=== PATIENT | female | born 1970 | race Caucasian/White ===

== ENCOUNTER 2016-10-16 12:44 | Day surgery (SDC) | payer OTHER ==
[2016-10-16 13:38] VITALS: BP 116/80; Ht 170.2 cm
[2016-10-16 13:38] LABS: HEMATOCRIT 42.3 % (36.0-48.0); HEMOGLOBIN 14.4 g/dL (12-16); MCH 30.1 pg (26.0-34.0); MCV 88.3 fL (80.0-100.0); MEAN PLATELET VOLUME 10.8 fL (7.4-10.4); RBC 4.79 10x6/uL (4.00-5.40); RDW 12.8 % (11.5-14.5); WBC 5.4 10x3/uL (4.8-10.8)
--- NOTE | 2016-10-16 15:00 | NUR ---
1450 DR RUIZ INTO RM TO SPEAK W/PT AND 1455 FULL LIQUID TRAY PROVIDED PT ASKED WHEN SHE WAS GOING TO GET TO LEAVE EXPLAINED AFTER VERITO TRAY AND ONE MORE SET OF VS IN 30MIN. PT VU
--- NOTE | 2016-10-16 15:11 | NUR ---
VERITO TRAY WELL STATES SHE FEELS FINE NO N/V.
--- NOTE | 2016-10-16 15:31 | NUR ---
1525 DC TEACHING COMPLETE PT VU PRESCRIPTION GIVEN
--- NOTE | 2016-10-18 12:19 | OP ---
PATIENT NAME: JOHN TURCIOS MEDICAL RECORD: [id number] :66 LOCATION:D.[facility] ADMISSION DATE: SURGEON: HERNAN RUIZ DO DATE OF OPERATION: 10/16/2016 PROCEDURE: Colonoscopy with biopsy and cold forceps polypectomy. INDICATION FOR PROCEDURE: Altered bowel function, diarrhea, and abdominal pain. SCOPE: Olympus video pediatric colonoscope. MEDICATIONS: Propofol 450 mg IV per anesthesia. WITHDRAWAL TIME: 10 minutes. ESTIMATED BLOOD LOSS: Minimal. COMPLICATIONS: None. FINDINGS: Informed consent was given. The patient was made comfortable with the above medication. After reaching an adequate level of sedation by slow IV push, the patient was placed on her left side. A digital rectal examination was performed and was normal. The endoscope was then advanced under direct visualization through the rectum to the terminal ileum. The scope was slowly withdrawn and mucosa was carefully examined. The prep was good. There was a single polyp identified on this examination in the transverse colon. It was benign appearing and sessile. It measured approximately 5 mm in diameter. It was removed with cold forceps completely and completely retrieved. There were a few small mouth diverticula in the descending and sigmoid colon. There were also internal hemorrhoids visualized on retroflexion in the rectum. These were small and nonbleeding. Other interventions include some random colon biopsies to rule out microscopic colitis. The endoscope was removed after complete evaluation and withdrawn from the patient. The patient tolerated the procedure well and there were no complications. IMPRESSION: 1. Single transverse colon polyp as described above, removed with cold forceps. 2. Internal hemorrhoids, which were small and nonbleeding. 3. Mild diverticulosis of the left side of the colon. PLAN AND RECOMMENDATIONS: 1. Discharge home when recovery parameters are met. 2. High fiber diet. 4. Continue current medications. 5. Trial of dicyclomine 20 mg b.i.d. p.r.n. abdominal pain or spasms. 6. Proceed with upper endoscopy as scheduled. 7. Follow up in GI clinic as needed. TRANSINT:[id number] Voice Confirmation ID: [id number] DOCUMENT ID: [id number] OPERATIVE REPORT [id number] JOHN TURCIOS HERNAN RUIZ DO at 1211 CC: [id number] DICTATION DATE: 10/16/16 1809 BLUE LEATHER SETTER: 10/16/162032 DEP [place] 10/16/16 [facility] [address] [facility] [place] [address]
== END 2016-10-16 15:36 | disposition home or self-care (01) ==
LOC: D.OPS 12:44
PROVIDERS: Anesthesiology
DX: R19.4 Change in bowel habit (principal); R10.11 Right upper quadrant pain; R10.12 Left upper quadrant pain; R19.7 Diarrhea, unspecified; Z01.812 Encounter for preprocedural laboratory examination; D12.3 Benign neoplasm of transverse colon; K64.8 Other hemorrhoids; K57.90 Diverticulosis of intestine, part unspecified, without perforation or abscess without bleeding

== ENCOUNTER 2016-11-15 10:26 | Day surgery (SDC) | payer OTHER ==
[~2016-11-15] VITALS: Ht 170.2 cm; Wt 65.9 kg
[2016-11-15] MEDS ORDERED: ESTRACE2 MG PO (11:07)
[2016-11-15 11:10] VITALS: BP 131/77; Ht 170.2 cm; Wt 65.9 kg
[2016-11-15 11:27] LABS: HEMATOCRIT 40.8 % (36.0-48.0); HEMOGLOBIN 13.9 g/dL (12-16); MCH 29.7 pg (26.0-34.0); MCHC 34.1 g/dL (31.0-37.0); MCV 87.2 fL (80.0-100.0); MEAN PLATELET VOLUME 10.5 fL (7.4-10.4); RBC 4.68 10x6/uL (4.00-5.40); RDW 12.8 % (11.5-14.5); WBC 5.3 10x3/uL (4.8-10.8)
--- NOTE | 2016-11-16 13:06 | OP ---
PATIENT NAME: JOHN MARSH MEDICAL RECORD: [id number] :66 LOCATION:D.[facility] ADMISSION DATE: SURGEON: HERNAN RUIZ DO OPERATION DATE: 11/15/16 DATE OF OPERATION: 11/15/2016 PROCEDURE: EGD with biopsies. INDICATIONS FOR PROCEDURE: Diarrhea, hunger pain, nausea, pain provoked by eating. SCOPE: Olympus video gastroscope. MEDICATIONS: Propofol 150 mg IV per anesthesia. ESTIMATED BLOOD LOSS: Minimal. COMPLICATIONS: None. FINDINGS: Informed consent was given. The patient was made comfortable with the above medication. After reaching an adequate level of sedation by slow IV push, the patient was placed on her left side. The endoscope was then advanced under direct visualization through the mouth to the third portion of the duodenum. The upper, middle, and lower thirds of the esophagus all appeared normal. At the GE junction, there was some evidence of LA class A reflux-induced esophagitis. The endoscope was advanced beyond the GE junction into the stomach and retroflexed to view the cardia, which appeared normal. The fundus and upper portion of the body of the stomach appeared normal as well. In the antrum and prepyloric region, there was some granularity and erythema consistent with possible gastritis. Biopsies were taken to submit for histology and to rule out H. pylori. The endoscope was advanced beyond the pylorus into the duodenum where the bulb, second portion, and third portion of the duodenum appeared normal. Random biopsies were taken for histology regarding the diarrhea that Ms. Marsh has been experiencing. The endoscope was then withdrawn from the patient. The patient tolerated the procedure well and there were no complications. IMPRESSION: 1. LA class A reflux-induced esophagitis. 2. Erythema and granularity in the antrum and prepyloric region consistent with possible gastritis, biopsies taken. 3. Normal duodenum, biopsies taken. PLAN AND RECOMMENDATIONS: 1. Discharge home when recovery parameters are met. 2. Continue current diet. 3. Continue current medications. 4. Use Zantac 150 mg daily to b.i.d. as needed for heartburn symptoms. 5. Gastric emptying study regarding the pain with eating and nausea. 6. Regarding the diarrhea and abdominal pain, I will give her a script for Bentyl 20 mg up to twice daily as needed for abdominal pain or loose stools to see if this helps her symptoms. 7. Further recommendations to follow results of gastric emptying study and trial of Bentyl. OPERATIVE REPORT [id number] TAMJOHN PATRICIA TRANSINT:[id number] Voice Confirmation ID: [id number] DOCUMENT ID: [id number] HERNAN RUIZ DO at 1306 CC: [id number] DICTATION DATE: 11/15/16 1314 PORTAL ARCHITECT: 11/15/16 2146 [facility] 11/15/16 [place] [place] [address]
== END 2016-11-15 13:47 | disposition home or self-care (01) ==
LOC: D.OPS 10:26
PROVIDERS: Anesthesiology
DX: K21.0 Gastro-esophageal reflux disease with esophagitis (principal); K31.89 Other diseases of stomach and duodenum; D12.3 Benign neoplasm of transverse colon; K64.8 Other hemorrhoids; K57.30 Diverticulosis of large intestine without perforation or abscess without bleeding; Z01.812 Encounter for preprocedural laboratory examination

== ENCOUNTER → 2017-01-09 07:36 | Outpatient (CLI) | payer OTHER | LOC: D.MRI 07:36 | DX: M54.6 Pain in thoracic spine (principal) ==